=== PATIENT | male | born 1940 | race Caucasian/White ===

== ENCOUNTER 2017-05-29 16:03 | Emergency (ER) | payer MEDICARE, BC ==
--- NOTE | 2017-05-29 16:51 | EDM.PDOC ---
ED HPI GENERAL MEDICAL PROBLEM - General Chief Complaint: General Stated Complaint: fall Time Seen by Provider: 05/29/17 16:24 Source of Information: Reports: Patient, Family History Limitations: Reports: No Limitations - History of Present Illness INITIAL COMMENTS - FREE TEXT/NARRATIVE: Patient was taking off boots when he got dizzy and fell to the side. History of chronic dizziness for years that is triggered when he is standing/ambulating and goes away if he is sitting/laying down. He managed to fall through the entry to the basement stairs and proceeded to roll down the basement stairs, all the way to the bottom. He denies LOC. was nearby when this happened and quickly reached him after the incident. and another family member were able to get him up and return upstairs. He refused to go into the hospital to be seen and sat in a chair for 4 hours. It was noted immediately that he had a developing goose-egg sized bump on his forehead as well as a bump on the back of his head. Patient has had no observable neuro changes per family since then. He did start to complain of some chest pain and then decided to come to the ER to be seen. At the time of arrival he complains of some pain in mid chest, neck discomfort, head contusion, and right shoulder discomfort. He denies numbness/tingling, focal weakness, visual changes, SOB, nausea, other pain. No other complaints. - Related Data Allergies Allergy/AdvReac Type Severity Reaction Status Date / Time No Known Allergies Allergy Verified 05/29/17 16:14 Home Meds: Home Meds Aspirin 2 tab PO BEDTIME 08/29/13 [History] Cyanocobalamin (Vitamin B12) [Vitamin B12] 2,500 mcg SL DAILY 08/29/13 [History] Lisinopril [Prinivil] 20 mg PO DAILY 08/29/13 [History] Tetrahydrozoline [Visine] 2 drop OP TID PRN 08/29/13 [History] Vardenafil HCl [Levitra] 20 mg PO ASDIRECTED PRN 08/29/13 [History] Cholecalciferol (Vitamin D3) [D-2000] 2,000 unit PO DAILY 08/16/15 [History] amLODIPine [Norvasc] 2.5 mg PO DAILY 08/16/15 [History] Ascorbic Acid [Vitamin C] 1,000 mg PO DAILY 05/29/17 [History] Past Medical History HEENT History: Reports: Cataract Cardiovascular History: Reports: High Cholesterol, Hypertension Musculoskeletal History: Reports: Other (See Below) Other Musculoskeletal History: hx, broken colar bone, left leg pt not sure which one. 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 No focal CVA/ischemic disease identified per patient/ Social & Family History - Family History Family Medical History: Noncontributory (for visit) - Tobacco Use Smoking Status *Q: Never Smoker Years of Tobacco use: 15 Used Tobacco, but Quit: Yes Second Hand Smoke Exposure: No - Alcohol Use Days Per Week of Alcohol Use: 0 Number of Drinks Per Day: 0 Total Drinks Per Week: 0 - Recreational Drug Use Recreational Drug Use: No Drug Use in Last 12 Months: No - Living Situation & Occupation Living situation: Reports: Occupation: Employed ED ROS GENERAL - Review of Systems Review Of Systems: See Below Constitutional: Reports: No Symptoms HEENT: Reports: Nose Pain (mild). Denies: Dental Pain, Eye Pain, Vision Change Respiratory: Reports: No Symptoms. Denies: Pleuritic Chest Pain Cardiovascular: Reports: Chest Pain, Lightheadedness (chronic) GI/Abdominal: Reports: No Symptoms : Reports: No Symptoms Musculoskeletal: Reports: Neck Pain, Shoulder Pain (right) Skin: Reports: Wound, Lumps Neurological: Reports: Dizziness (chronic), Headache (mild), Pre-Existing Deficit (slurred speech), Gait Disturbance (chronic balance issues due to dizziness). Denies: Confusion, Numbness, Paresthesia Psychiatric: Reports: No Symptoms Hematologic/Lymphatic: Reports: No Symptoms ED EXAM, GENERAL - Physical Exam Exam: See Below Exam Limited By: No Limitations General Appearance: Alert, WD/WN, No Apparent Distress Eye Exam: Bilateral Eye: EOMI, PERRL Ears: Normal External Exam, Normal Canal Nose: No Blood, Nasal Tenderness (mild), Nasal Swelling. No: Nasal Deformity, Nasal Drainage Throat/Mouth: Normal Voice, No Airway Compromise, Other (Jaw opens/closes well, patient feels teeth intact, no bleeding noted and no swelling around lips/mouth) Head: Facial Swelling (forehead), Facial Tenderness (forehead, bridge nose) Neck: Normal Inspection, Supple, Non-Tender, Full Range of Motion, Other ( unable to elicit tenderness with palpation) Respiratory/Chest: No Respiratory Distress, Lungs Clear, Normal Breath Sounds, No Accessory Muscle Use, Chest Non-Tender (unable to elicit rib/sternal pain with palpation) Cardiovascular: Normal Peripheral Pulses, Regular Rate, Rhythm, No Edema, No Murmur Peripheral Pulses: 2+: Radial (L), Radial (R), Dorsalis Pedis (L), Dorsalis Pedis (R) GI/Abdominal: Normal Bowel Sounds, Soft, Non-Tender (Male) Exam: Deferred Rectal (Males) Exam: Deferred Back Exam: No: CVA Tenderness (L), CVA Tenderness (R), Muscle Spasm, Paraspinal Tenderness, Vertebral Tenderness Extremities: Normal Inspection, Normal Range of Motion (all joints, including right shoulder), Non-Tender (no focal tenderness elicited with palpation of joints/limbs), No Pedal Edema, Normal Capillary Refill Neurological: Alert, Oriented, No Motor/Sensory Deficits (equal tone/strength/ DTRs upper and lower limbs) Psychiatric: Normal Affect, Normal Mood Skin Exam: Warm, Dry, Other (bruising and abrasion on forehead/superior nose, mild abrasion also posterior head. No other acute bruising noted during patient' s stay on trunk/back/limbs) Course - Orders/Labs/Meds Orders: Active Orders 24 hr Category Date Time Status EKG Documentation Completion [RC] ASDIRECTED Care 05/29/17 16:10 Active Cervical Spine wo Cont [CT] Stat Exams 05/29/17 16:39 Taken Chest w Cont [CT] Stat Exams 05/29/17 16:41 Taken Head wo Cont [CT] Stat Exams 05/29/17 16:38 Taken VITAMIN D 25-HYROXY (D2, D3) [REF] Routine Lab 05/29/17 16:56 Received Labs: Laboratory Tests 05/29/17 05/29/17 05/29/17 Range/Units 16:56 16:56 18:37 WBC 12.4 H (4.0-10.2) K/uL RBC 4.78 (4.33-5.41) M/uL Hgb 15.4 (13.1-16.8) g/dL Hct 44.0 (39.0-49.0) % MCV 92.1 (84.0-98.0) fL MCH 32.2 (28.2-33.3) pg MCHC 35.0 (31.7-36.0) g/dL RDW 13.1 (11.2-14.1) % Plt Count 237 (150-350) K/uL Neut % (Auto) 67.6 (45.0-80.0) % Lymph % (Auto) 23.8 (10.0-50.0) % [place] % (Auto) 6.9 (2.0-14.0) % Eos % (Auto) 1.5 (0.0-5.0) % Baso % (Auto) 0.2 (0.0-2.0) % Neut # (Auto) 8.38 H (1.40-7.00) K/uL Lymph # (Auto) 2.95 (0.50-3.50) K/uL [place] # (Auto) 0.85 (0.00-1.00) K/uL Eos # (Auto) 0.19 (0.00-0.50) K/uL Baso # (Auto) 0.02 (0.00-0.20) K/uL Sodium 141 (136-145) mmol/L Potassium 3.9 (3.5-5.1) mmol/L Chloride 105 (98-107) mmol/L Carbon Dioxide 26.2 (21.0-32.0) mmol/L BUN 21 H (7-18) mg/dL Creatinine 0.98 (0.51-1.17) mg/dL Est Cr Clr Drug Dosing TNP Estimated GFR (MDRD) > 60 mL/min Glucose 110 H (74-106) mg/dL Calcium 9.1 (8.5-10.1) mg/dL Magnesium 2.0 (1.8-2.4) mg/dL Total Bilirubin 0.3 (0.2-1.0) mg/dL AST 14 L (15-37) U/L ALT 26 (12-78) U/L Alkaline Phosphatase 105 (46-116) IU/L Creatine Kinase 59 (26-308) U/L Total Protein 7.5 (6.4-8.2) g/dL Albumin 3.8 (3.4-5.0) g/dL Specimen Type Urincc Urine Color Yellow Urine Appearance Clear Urine pH 7.5 (5.0-9.0) Ur Specific [place] 1.015 (1.005-1.030) Urine Protein Negative (NEGATIVE) mg/dL Urine Glucose (UA) Negative (NEGATIVE) mg/dL Urine Ketones Negative (NEGATIVE) mg/dL Urine Occult Blood Negative (NEGATIVE) Urine Nitrite Negative (NEGATIVE) Urine Bilirubin Negative (NEGATIVE) Urine Urobilinogen 0.2 (0.2-1.0) E.U./dL Ur Leukocyte Esterase Negative (NEGATIVE) Urine RBC 0-5 /HPF Urine WBC 0-5 /HPF Ur Epithelial Cells Occasional /LPF Urine Bacteria Occasional (NONE TO FEW) /HPF Meds: Medications Discontinued Medications Generic Name Dose Route Start Last Admin Trade Name Freq PRN Reason Stop Dose Admin Iopamidol 100 ml 05/29/17 17:14 05/29/17 18:15 Isovue-300 (61%) IVPUSH 05/29/17 17:15 100 ml ONETIME ONE Administration - Radiology Interpretation CT Results Date: 05/29/17 CT Results Time: 05:53 (Possible T3 superior endplate compression fracture, no acute bleed/changes in brain noted. ) - Re-Assessments/Exams Free Text/Narrative Re-Assessment/Exam: 05/29/17 20:44 CT of head/neck performed as well as chest. Only identified acute changes noted were suggested new compression fractures at T3 and T12. Patient got up and moved around multiple times during stay and was able to ambulate safely. Vital signs stable. Declined pain medication. Labs unremarkable overall except for slight elevation of WBC which very well could reflect acute demargination s/p fall and acute injury. Discussed findings with patient and family. He wished to go home. Was offered observation. At that point we discussed/offered that if he has too much discomfort at home secondary to the compression fractures and contusions that it would be possible for him to return here and be placed on swing bed. That way he could have help with ADLs and be seen by PT/OT. Patient and said they would consider that if it was needed. Patient discharged home. Departure - Departure Time of Disposition: 18:44 Disposition: Home, Self-Care 01 Condition: Good Clinical Impression: Multiple contusions, Compression fracture of T12 vertebra Fall down stairs Qualifiers: Encounter type: initial encounter Qualified Code(s): W10.8XXA - Fall (on) (from ) other stairs and steps, initial encounter Head contusion Qualifiers: Encounter type: initial encounter Contusion of head detail: unspecified part of head Qualified Code(s): S00.93XA - Contusion of unspecified part of head, initial encounter Traumatic compression fracture of T3 thoracic vertebra Qualifiers: Encounter type: initial encounter Fracture type: closed Qualified Code(s): S22.030A - Wedge compression fracture of third thoracic vertebra, initial encounter for closed fracture - Discharge Information Instructions: Contusion, [id number], Head Injury, Adult, [id number], Vertebral Fracture, [id number] Referrals: Cornelius Faustin MD [Primary Care Provider] - Forms: ED Department Discharge Additional Instructions: See how well you do over the next 24-48 hours. Given your bumps and bruises it will likely become more painful and stiff over that time. If you have too much difficulty at home with basic activities, consider coming back to the hospital for swing bed stay as we discussed. That way you can get the extra help as well as physical therapy while you heal from your fall. Follow up also if you have sudden worsening changes otherwise. - My Orders Last 24 Hours: My Active Orders 05/29/17 16:10 EKG Documentation Completion [RC] ASDIRECTED 05/29/17 16:38 Head wo Cont [CT] Stat 05/29/17 16:39 Cervical Spine wo Cont [CT] Stat 05/29/17 16:41 Chest w Cont [CT] Stat 05/29/17 16:56 VITAMIN D 25-HYROXY (D2, D3) [REF] Routine - Assessment/Plan Last 24 Hours: My Active Orders 05/29/17 16:10 EKG Documentation Completion [RC] ASDIRECTED 05/29/17 16:38 Head wo Cont [CT] Stat 05/29/17 16:39 Cervical Spine wo Cont [CT] Stat 05/29/17 16:41 Chest w Cont [CT] Stat 05/29/17 16:56 VITAMIN D 25-HYROXY (D2, D3) [REF] Routine
[2017-05-29] MEDS ORDERED: Iopamidol 612 MG/ML 100 ML Bottle IVPUSH ONE (17:14)
[2017-05-29 17:23] LABS: CHLORIDE,CL 105 mmol/L (98-107); SODIUM,NA 141 mmol/L (136-145)
== END 2017-05-29 19:10 | disposition home or self-care (01) ==
LOC: LL.ED 16:03
DX: S22.039A Unspecified fracture of third thoracic vertebra, initial encounter for closed fracture (principal); S22.089A Unspecified fracture of T11-T12 vertebra, initial encounter for closed fracture; S00.83XA Contusion of other part of head, initial encounter; I10 Essential (primary) hypertension; E78.00 Pure hypercholesterolemia, unspecified; Z79.899 Other long term (current) drug therapy; Z79.82 Long term (current) use of aspirin; Z87.891 Personal history of nicotine dependence; W19.XXXA Unspecified fall, initial encounter
CPT/HCPCS: 36000; 36415; 51798; 70450; 71260; 72125; 80053; 81001; 82306; 82550; 83735; 85025; 93005; 99291; 99292; Q9967; 99284

== ENCOUNTER 2017-09-23 17:39 | Emergency (ER) | payer MEDICARE, BC ==
[2017-09-23 19:00] VITALS: BP 157/89
[2017-09-23] MEDS ORDERED: Iopamidol 755 Mg/ML 100 ML Bottle IVPUSH ONE (19:20)
[2017-09-23 19:21] LABS: CHLORIDE,CL 105 mmol/L (98-107); SODIUM,NA 140 mmol/L (136-145)
--- NOTE | 2017-09-23 19:40 | EDM.PDOC ---
ED HPI GENERAL MEDICAL PROBLEM - General Chief Complaint: General Stated Complaint: Dizziness, Shortness of Breath Time Seen by Provider: 09/23/17 18:10 Source of Information: Reports: Patient, Family History Limitations: Reports: No Limitations - History of Present Illness INITIAL COMMENTS - FREE TEXT/NARRATIVE: Increased sensation of SOB since tipping a lawnmower over several weeks ago. Has had some right sided chest discomfort since then. Says lawnmower made contact with right chest at that time. History of chronic dizziness/ lightheadedness that usually improves at rest. This has also worsened in general over the past few weeks. Worse with movement. Incontinence has also worsened. 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 Has had very extensive workups for this in [facility] but no specific findings on MRI per family. No other specific changes during ROS. - Related Data Allergies Allergy/AdvReac Type Severity Reaction Status Date / Time No Known Allergies Allergy Verified 09/23/17 18:54 Home Meds: Home Meds Aspirin 2 tab PO BEDTIME 08/29/13 [History] Cyanocobalamin (Vitamin B12) [Vitamin B12] 2,500 mcg SL DAILY 08/29/13 [History] Lisinopril [Prinivil] 20 mg PO DAILY 08/29/13 [History] Tetrahydrozoline [Visine] 2 drop OP TID PRN 08/29/13 [History] Vardenafil HCl [Levitra] 20 mg PO ASDIRECTED PRN 08/29/13 [History] Cholecalciferol (Vitamin D3) [D-2000] 2,000 unit PO DAILY 08/16/15 [History] amLODIPine [Norvasc] 2.5 mg PO DAILY 08/16/15 [History] Ascorbic Acid [Vitamin C] 1,000 mg PO DAILY 05/29/17 [History] Past Medical History HEENT History: Reports: Cataract Cardiovascular History: Reports: High Cholesterol, Hypertension Musculoskeletal History: Reports: Other (See Below) Other Musculoskeletal History: hx, broken colar bone, left leg pt not sure which one. Spinal burst fracture Neurological History: Reports: Other (See Below) Other Neuro History: deteriating cerebelum, chronically slurred speech since dizziness started several years ago Oncologic (Cancer) History: Reports: Prostate - Past Surgical History Male Surgical History: Reports: Prostatectomy Musculoskeletal Surgical History: Reports: ORIF - History Comment History Comment: Extensive workup and imaging to look for causes of chronic dizziness/slurred speech. No focal CVA/ischemic disease identified per patient/ Social & Family History - Family History Family Medical History: Noncontributory - Tobacco Use Smoking Status *Q: Never Smoker - Alcohol Use Alcohol Use History: No - Recreational Drug Use Recreational Drug Use: No Drug Use in Last 12 Months: No - Living Situation & Occupation Living situation: Reports: Occupation: Employed ED ROS GENERAL - Review of Systems Review Of Systems: See Below Constitutional: Reports: No Symptoms HEENT: Reports: No Symptoms. Denies: Vertigo (denies spinning sensation/vertigo -like complaints), Vision Change Respiratory: Reports: Shortness of Breath (with exertion). Denies: Wheezing, Pleuritic Chest Pain, Cough, Sputum, Hemoptysis Cardiovascular: Reports: Dyspnea on Exertion, Lightheadedness (chronic, worse than usual). Denies: Edema, Orthopnea, Palpitations, PND, Syncope GI/Abdominal: Reports: No Symptoms. Denies: Abdominal Pain, Constipation, Diarrhea, Hematemesis, Hematochezia, Nausea, Vomiting : Reports: Incontinence Musculoskeletal: Reports: Other (right chest wall discomfort at times. No other acute new/changed pain otherwise) Skin: Denies: Bruising, Erythema, Wound Neurological: Reports: Dizziness, Pre-Existing Deficit (slurred speech, dizziness), Difficulty Walking (at times due to dizziness. No acute gait changes ). Denies: Headache, Numbness, Paresthesia, Syncope, Tingling, Change in Speech Psychiatric: Reports: No Symptoms Hematologic/Lymphatic: Reports: No Symptoms ED EXAM, GENERAL - Physical Exam Exam: See Below Exam Limited By: No Limitations General Appearance: Alert, WD/WN, No Apparent Distress Eye Exam: Bilateral Eye: EOMI, PERRL Ears: Normal External Exam, Normal Canal, Hearing Grossly Normal, Normal TMs, Other (large amount cerumen bilaterally) Nose: Normal Inspection Throat/Mouth: Normal Inspection, Normal Lips, Normal Voice, No Airway Compromise Head: Atraumatic, Normocephalic Neck: Normal Inspection, Supple, Non-Tender. No: Lymphadenopathy (L), Lymphadenopathy (R), Tender Lateral, Tender Midline Respiratory/Chest: No Respiratory Distress, Lungs Clear, Normal Breath Sounds, No Accessory Muscle Use, Chest Non-Tender Cardiovascular: Normal Peripheral Pulses, Regular Rate, Rhythm, No Murmur Peripheral Pulses: 2+: Radial (L), Radial (R) GI/Abdominal: Normal Bowel Sounds, Soft, Non-Tender, No Distention (Male) Exam: Deferred Rectal (Males) Exam: Deferred Back Exam: No: CVA Tenderness (L), CVA Tenderness (R) Extremities: Normal Range of Motion, Non-Tender, Normal Capillary Refill Neurological: Alert, Oriented, Normal Cognition, No Motor/Sensory Deficits, Other (Patient got up and walked hallways with nurse in attendance. Overall did very well. No obvious SOB. Sats on room air 94% at end of ambulation. ) Psychiatric: Normal Affect, Normal Mood Skin Exam: Warm, Dry, Intact, Normal Color Course - Vital Signs Last Recorded V/S: Last Vital Signs Temp 37.1 C 09/23/17 18:55 Pulse 92 09/23/17 18:55 Resp 20 09/23/17 18:55 BP 157/89 H 09/23/17 18:55 Pulse Ox 100 09/23/17 18:55 - Orders/Labs/Meds Labs: Laboratory Tests 09/23/17 09/23/17 09/23/17 Range/Units 18:25 18:25 18:25 WBC 9.2 (4.0-10.2) K/uL RBC 4.95 (4.33-5.41) M/uL Hgb 15.8 (13.1-16.8) g/dL Hct 45.3 (39.0-49.0) % MCV 91.5 (84.0-98.0) fL MCH 31.9 (28.2-33.3) pg MCHC 34.9 (31.7-36.0) g/dL RDW 12.9 (11.2-14.1) % Plt Count 240 (150-350) K/uL Neut % (Auto) 53.8 (45.0-80.0) % Lymph % (Auto) 35.5 (10.0-50.0) % [place] % (Auto) 7.9 (2.0-14.0) % Eos % (Auto) 2.5 (0.0-5.0) % Baso % (Auto) 0.3 (0.0-2.0) % Neut # (Auto) 4.94 (1.40-7.00) K/uL Lymph # (Auto) 3.27 (0.50-3.50) K/uL [place] # (Auto) 0.73 (0.00-1.00) K/uL Eos # (Auto) 0.23 (0.00-0.50) K/uL Baso # (Auto) 0.03 (0.00-0.20) K/uL D-Dimer, Quantitative 1160 H (0-400) ng/mL Sodium 140 (136-145) mmol/L Potassium 3.8 (3.5-5.1) mmol/L Chloride 105 (98-107) mmol/L Carbon Dioxide 22.7 (21.0-32.0) mmol/L BUN 15 (7-18) mg/dL Creatinine 0.87 (0.51-1.17) mg/dL Est Cr Clr Drug Dosing TNP Estimated GFR (MDRD) > 60 mL/min Glucose 106 (74-106) mg/dL Calcium 9.1 (8.5-10.1) mg/dL Magnesium 2.1 (1.8-2.4) mg/dL Total Bilirubin 0.3 (0.2-1.0) mg/dL AST 16 (15-37) U/L ALT 23 (12-78) U/L Alkaline Phosphatase 147 H (46-116) IU/L NT-Pro-B Natriuret Pep 102 (0-125) pg/mL Total Protein 7.9 (6.4-8.2) g/dL Albumin 3.9 (3.4-5.0) g/dL Vitamin B12 1082 H (193-986) pg/mL Vitamin D 25-Hydroxy 33.0 (30-100) ng/mL Folate (8.6-58.9) ng/mL 09/23/17 Range/Units 18:25 WBC (4.0-10.2) K/uL RBC (4.33-5.41) M/uL Hgb (13.1-16.8) g/dL Hct (39.0-49.0) % MCV (84.0-98.0) fL MCH (28.2-33.3) pg MCHC (31.7-36.0) g/dL RDW (11.2-14.1) % Plt Count (150-350) K/uL Neut % (Auto) (45.0-80.0) % Lymph % (Auto) (10.0-50.0) % [place] % (Auto) (2.0-14.0) % Eos % (Auto) (0.0-5.0) % Baso % (Auto) (0.0-2.0) % Neut # (Auto) (1.40-7.00) K/uL Lymph # (Auto) (0.50-3.50) K/uL [place] # (Auto) (0.00-1.00) K/uL Eos # (Auto) (0.00-0.50) K/uL Baso # (Auto) (0.00-0.20) K/uL D-Dimer, Quantitative (0-400) ng/mL Sodium (136-145) mmol/L Potassium (3.5-5.1) mmol/L Chloride (98-107) mmol/L Carbon Dioxide (21.0-32.0) mmol/L BUN (7-18) mg/dL Creatinine (0.51-1.17) mg/dL Est Cr Clr Drug Dosing Estimated GFR (MDRD) mL/min Glucose (74-106) mg/dL Calcium (8.5-10.1) mg/dL Magnesium (1.8-2.4) mg/dL Total Bilirubin (0.2-1.0) mg/dL AST (15-37) U/L ALT (12-78) U/L Alkaline Phosphatase (46-116) IU/L NT-Pro-B Natriuret Pep (0-125) pg/mL Total Protein (6.4-8.2) g/dL Albumin (3.4-5.0) g/dL Vitamin B12 (193-986) pg/mL Vitamin D 25-Hydroxy (30-100) ng/mL Folate 17.9 (8.6-58.9) ng/mL Meds: Medications Discontinued Medications Generic Name Dose Route Start Last Admin Trade Name Freq PRN Reason Stop Dose Admin Iopamidol 100 ml 09/23/17 19:20 09/23/17 19:42 Isovue-370 (76%) IVPUSH 09/23/17 19:21 100 ml ONETIME ONE Administration - Re-Assessments/Exams Free Text/Narrative Re-Assessment/Exam: 09/23/17 20:00 CBC/Chem/DDimer/BNP/VitD/Folate/B12 ordered. Chest film/rib studies did not show obvious acute abnormalities however Radiology thought that there was slight anomaly noted rib 8 on right that could reflect a fracture. DDimer elevated at over 1100. PE scan ordered. Vital signs stable. Did not dip below 94% on room air after walking the hallways. O2 sats 99-100% on room air when resting. Normal respiratory effort. Patient stable on feet when ambulating. Patient and family wanted to go home and not wait for official reading of chest CT. Precautions reviewed. They did agree to return of PE noted on scan. They agreed to otherwise follow up with patient's primary provider for ongoing care. Departure - Departure Time of Disposition: 21:00 Disposition: Home, Self-Care 01 Condition: Good Clinical Impression: Dizziness, Cerebellar disease, SOB (shortness of breath) on exertion - Discharge Information Referrals: Humberto Barnes MD [Primary Care Provider] - Forms: ED Department Discharge Additional Instructions: Continue current medications. Follow up with your doctors as needed for continuing care. Watch for any additional changes and get rechecked if things worsen.
== END 2017-09-23 21:15 | disposition home or self-care (01) ==
LOC: LL.ED 17:39
DX: S22.31XA Fracture of one rib, right side, initial encounter for closed fracture (principal); G93.9 Disorder of brain, unspecified; I10 Essential (primary) hypertension; E78.00 Pure hypercholesterolemia, unspecified; Z79.82 Long term (current) use of aspirin; Z79.899 Other long term (current) drug therapy; W01.198A Fall on same level from slipping, tripping and stumbling with subsequent striking against other object, initial encounter
CPT/HCPCS: 36415; 71046; 71100-RT; 71275; 80053; 82306; 82607; 82746; 83735; 83880; 85025; 85379; 99285; Q9967

== ENCOUNTER 2018-10-07 17:17 | Emergency (ER) | payer MEDICARE, BC ==
[2018-10-07 18:00] LABS: CHLORIDE,CL 105 mmol/L (98-107); SODIUM,NA 141 mmol/L (136-145)
--- NOTE | 2018-10-07 18:18 | EDM.PDOC ---
ED HPI GENERAL MEDICAL PROBLEM - General Chief Complaint: Neuro Symptoms/Deficits Stated Complaint: fall, with memory loss Time Seen by Provider: 10/07/18 17:23 Source of Information: Reports: Patient, Family History Limitations: Reports: Altered Mental Status - History of Present Illness INITIAL COMMENTS - FREE TEXT/NARRATIVE: Patient found on ground outside of home. Appears during fall he may have hit head on concrete per family. Unknown if he had any LOC. Patient does not remember what happened to him at the time of the fall. He has been repeatedly asking family members what happened and why he is at the hospital since he arrived. Has obvious abrasion on the back of the head. No other complaints when asked. Family says patient usually denies any discomfort/pain when asked in the past, even when he has been injured. Family has not noted any other injuries. - Related Data Allergies Allergy/AdvReac Type Severity Reaction Status Date / Time No Known Allergies Allergy Verified 09/23/17 18:54 Home Meds: Home Meds Aspirin 2 tab PO BEDTIME 08/29/13 [History] Cyanocobalamin (Vitamin B12) [Vitamin B12] 2,500 mcg SL DAILY 08/29/13 [History] Lisinopril [Prinivil] 20 mg PO DAILY 08/29/13 [History] Tetrahydrozoline [Visine] 2 drop OP TID PRN 08/29/13 [History] Vardenafil HCl [Levitra] 20 mg PO ASDIRECTED PRN 08/29/13 [History] Cholecalciferol (Vitamin D3) [D-2000] 2,000 unit PO DAILY 08/16/15 [History] amLODIPine [Norvasc] 2.5 mg PO DAILY 08/16/15 [History] Ascorbic Acid [Vitamin C] 1,000 mg PO DAILY 05/29/17 [History] Past Medical History HEENT History: Reports: Cataract Cardiovascular History: Reports: High Cholesterol, Hypertension Musculoskeletal History: Reports: Other (See Below) Other Musculoskeletal History: hx, broken colar bone, left leg pt not sure which one. Spinal burst fracture Neurological History: Reports: Concussion, Other (See Below) Other Neuro History: deteriorating cerebelum, chronically slurred speech since dizziness started several years ago. Chronic right sided weakness. Oncologic (Cancer) History: Reports: Prostate - Past Surgical History Male Surgical History: Reports: Prostatectomy Musculoskeletal Surgical History: Reports: ORIF - History Comment History Comment: Extensive workup and imaging to look for causes of chronic dizziness/slurred speech. No focal CVA/ischemic disease identified per patient/ Social & Family History - Family History Family Medical History: Noncontributory - Tobacco Use Smoking Status *Q: Never Smoker Second Hand Smoke Exposure: No - Caffeine Use Caffeine Use: Reports: Coffee - Recreational Drug Use Recreational Drug Use: No - Living Situation & Occupation Living situation: Reports: Occupation: Employed ED ROS GENERAL - Review of Systems Review Of Systems: ROS reveals no pertinent complaints other than HPI. Constitutional: Reports: No Symptoms HEENT: Reports: Glasses Respiratory: Reports: No Symptoms Cardiovascular: Reports: No Symptoms. Denies: Chest Pain, Edema, Palpitations, Syncope GI/Abdominal: Reports: No Symptoms. Denies: Abdominal Pain Musculoskeletal: Denies: Neck Pain, Shoulder Pain, Arm Pain, Back Pain, Hand Pain, Leg Pain, Foot Pain, Joint Pain, Joint Swelling Skin: Reports: Wound (abrasion posterior scalp) Neurological: Reports: Other (short term amnesia surrounding fall. Cannot recall how he was hurt) Psychiatric: Reports: No Symptoms Hematologic/Lymphatic: Reports: No Symptoms ED EXAM, HEAD INJURY - Physical Exam Exam: See Below Exam Limited By: No Limitations General Appearance: Alert, WD/WN, No Apparent Distress Head: Scalp Abrasions (posteriorly), Scalp Ecchymosis (posteriorly), Scalp Tenderness (posteriorly). No: Scalp Swelling, Scalp Hematoma, Active Bleeding, Cardozo's Sign, Facial Abrasions, Facial Ecchymosis, Facial Lacerations, Facial Swelling, Sinus Tenderness, Facial Tenderness, Raccoon Eyes Eyes: Bilateral Eye: EOMI, PERRL Ears: Normal External Exam Nose: No: Nasal Deformity, Nasal Discharge, Nasal Swelling, Nasal Tenderness Throat/Mouth: Normal Lips, Normal Voice, No Airway Compromise, Other (Patient able to open and close jaw well. ) Neck: Non-Tender, Full Range of Motion Respiratory: No Respiratory Distress, Lungs Clear, Normal Breath Sounds, No Accessory Muscle Use, Chest Non-Tender Cardiovascular: Regular Rate, Rhythm, No Edema, No Murmur GI/Abdominal Exam: Normal Bowel Sounds, Soft, Non-Tender, No Distention, Pelvis Stable (Male) Exam: Deferred Rectal (Males) Exam: Deferred Back Exam: Normal Inspection. No: CVA Tenderness (L), CVA Tenderness (R), Muscle Spasm, Paraspinal Tenderness, Vertebral Tenderness Extremities: Normal Range of Motion (for patient), Non-Tender, No Pedal Edema, Normal Capillary Refill Neurologic: Alert, Motor Weakness (right sided, not new per family) Course - Vital Signs Last Recorded V/S: Last Vital Signs Temp 36.7 C 10/07/18 17:30 Pulse 82 10/07/18 18:44 Resp 20 10/07/18 17:30 BP 153/67 H 10/07/18 18:44 Pulse Ox 98 10/07/18 17:30 - Orders/Labs/Meds Orders: Active Orders 24 hr Category Date Time Status Cervical Spine wo Cont [CT] Stat Exams 10/07/18 17:24 Taken Head wo Cont [CT] Stat Exams 10/07/18 17:24 Taken UA W/MICROSCOPIC [URIN] Stat Lab 10/07/18 17:28 Ordered Labs: Laboratory Tests 10/07/18 10/07/18 Range/Units 17:40 17:40 WBC 9.6 (4.0-10.2) K/uL RBC 4.85 (4.33-5.41) M/uL Hgb 15.8 (13.1-16.8) g/dL Hct 44.9 (39.0-49.0) % MCV 92.6 (84.0-98.0) fL MCH 32.6 (28.2-33.3) pg MCHC 35.2 (31.7-36.0) g/dL RDW 12.8 (11.2-14.1) % Plt Count 243 (150-350) K/uL Neut % (Auto) 67.7 (45.0-80.0) % Lymph % (Auto) 24.1 (10.0-50.0) % [place] % (Auto) 6.6 (2.0-14.0) % Eos % (Auto) 1.4 (0.0-5.0) % Baso % (Auto) 0.2 (0.0-2.0) % Neut # (Auto) 6.51 (1.40-7.00) K/uL Lymph # (Auto) 2.31 (0.50-3.50) K/uL [place] # (Auto) 0.63 (0.00-1.00) K/uL Eos # (Auto) 0.13 (0.00-0.50) K/uL Baso # (Auto) 0.02 (0.00-0.20) K/uL Sodium 141 (136-145) mmol/L Potassium 3.7 (3.5-5.1) mmol/L Chloride 105 (98-107) mmol/L Carbon Dioxide 24.6 (21.0-32.0) mmol/L BUN 17 (7-18) mg/dL Creatinine 0.83 (0.51-1.17) mg/dL Est Cr Clr Drug Dosing 65.12 mL/min Estimated GFR (MDRD) > 60 mL/min Glucose 123 H (74-106) mg/dL Calcium 8.9 (8.5-10.1) mg/dL Magnesium 1.8 (1.8-2.4) mg/dL Total Bilirubin 0.4 (0.2-1.0) mg/dL AST 14 L (15-37) U/L ALT 26 (12-78) U/L Alkaline Phosphatase 101 (46-116) IU/L Total Protein 7.2 (6.4-8.2) g/dL Albumin 3.8 (3.4-5.0) g/dL Meds: Medications Discontinued Medications Generic Name Dose Route Start Last Admin Trade Name Freq PRN Reason Stop Dose Admin Metoprolol Tartrate 25 mg 10/07/18 18:33 10/07/18 18:44 Lopressor PO 10/07/18 18:34 25 mg ONETIME ONE Administration Neomycin/Polymyxin/Bacitracin 1 each 10/07/18 18:49 10/07/18 19:02 Triple Antibiotic Oint TOP 10/07/18 18:50 1 each ONETIME ONE Administration - Radiology Interpretation Free Text/Narrative:: CT of head and neck ordered given history. No additional films ordered at this time as patient has no other pain complaints. CT Results Date: 10/07/18 CT Results Time: 18:40 (No obvious acute intracranial changes or fracture noted on head/neck CT. ) - Re-Assessments/Exams Free Text/Narrative Re-Assessment/Exam: 10/07/18 18:35 Baseline CBC/Chem ordered. Single Metoprolol given due to elevated BP. 07/06/19 19:12 Patient observed. BP improved. OK to be discharged homes. Precautions reviewed. To follow up as needed if any worrisome changes are noted. Departure - Departure Time of Disposition: 19:13 Disposition: Home, Self-Care 01 Condition: Good Clinical Impression: Head contusion Qualifiers: Encounter type: initial encounter Contusion of head detail: scalp Qualified Code(s): S00.03XA - Contusion of scalp, initial encounter Fall Qualifiers: Encounter type: initial encounter Qualified Code(s): W19.XXXA - Unspecified fall, initial encounter Concussion Qualifiers: Encounter type: initial encounter Loss of consciousness presence/duration: without LOC Qualified Code(s): S06.0X0A - Concussion without loss of consciousness, initial encounter - Discharge Information *PRESCRIPTION DRUG MONITORING PROGRAM REVIEWED*: Not Applicable *COPY OF PRESCRIPTION DRUG MONITORING REPORT IN PATIENT FRANCIS: Not Applicable Instructions: Head Injury, Adult Referrals: Cornelius Faustin MD [Primary Care Provider] - Forms: ED Department Discharge Additional Instructions: Observe for changes as discussed. Follow up as needed if any concerns/acute problems develop. - My Orders Last 24 Hours: My Active Orders 10/07/18 17:24 Cervical Spine wo Cont [CT] Stat Head wo Cont [CT] Stat 10/07/18 17:28 UA W/MICROSCOPIC [URIN] Stat - Assessment/Plan Last 24 Hours: My Active Orders 10/07/18 17:24 Cervical Spine wo Cont [CT] Stat Head wo Cont [CT] Stat 10/07/18 17:28 UA W/MICROSCOPIC [URIN] Stat
[2018-10-07] MEDS ORDERED: Metoprolol Tartrate 25 MG Tab PO ONE (18:33)
[2018-10-07] MEDS ORDERED: Bacitracin/Neomycin/Polymyxin B Oint 0.9 GM U/D Packet TOP ONE (18:49)
[2018-10-07 19:34] VITALS: BP 163/80; PULSE 78
== END 2018-10-07 19:30 | disposition home or self-care (01) ==
LOC: SUPCPDRO 17:17 → LL.ED 17:17
DX: S06.0X9A Concussion with loss of consciousness of unspecified duration, initial encounter (principal); E78.00 Pure hypercholesterolemia, unspecified; I10 Essential (primary) hypertension; Z79.82 Long term (current) use of aspirin; W18.39XA Other fall on same level, initial encounter
CPT/HCPCS: 36415; 70450; 72125; 80053; 83735; 85025; 99284; A9270

== ENCOUNTER 2019-02-23 21:38 | Emergency (ER) | payer MEDICARE, BC ==
[2019-02-23 22:15] LABS: CHLORIDE,CL 107 mmol/L (98-107); SODIUM,NA 144 mmol/L (136-145)
--- NOTE | 2019-02-23 22:36 | EDM.PDOC ---
ED HPI GENERAL MEDICAL PROBLEM - General Chief Complaint: Head Injury Stated Complaint: Fell backward in chair/hit head Time Seen by Provider: 02/23/19 21:55 Source of Information: Reports: Family History Limitations: Reports: Other (neurodegenerative disorder affecting movement and speech) - History of Present Illness INITIAL COMMENTS - FREE TEXT/NARRATIVE: Patient fell backwards in dining chair while at home. Hit back of head on floor. No LOC/seizure activity per family present. They did not patient had amnesia in regards to the event and the time after the event lasting for an hour or so. He is not complaining of any acute pain/injuries. He has history of neurodegenerative disorder, largely affecting cerebellum. Also has speech issues and questionable as to how much it affects him cognitively. Family notes that they really have not had a specific cognitive deficit diagnosed in the past, but they admit that the patient is getting worse at following directions and waiting for help with ADLs which gets him into trouble. Tonight he was told to wait for assistance but refused, and that led to the incident. Small xena in skin near bridge nose presumably from glasses. Patient usually ambulates using walker around home. Can use cane too as long as he has family members alongside him for support. Has some old bruising/abrasions from several other recent falls at home per family. - Related Data Allergies Allergy/AdvReac Type Severity Reaction Status Date / Time No Known Allergies Allergy Verified 09/23/17 18:54 Home Meds: Home Meds Aspirin 2 tab PO BEDTIME 08/29/13 [History] Cyanocobalamin (Vitamin B12) [Vitamin B12] 2,500 mcg SL DAILY 08/29/13 [History] Lisinopril [Prinivil] 20 mg PO DAILY 08/29/13 [History] Tetrahydrozoline [Visine] 2 drop OP TID PRN 08/29/13 [History] Vardenafil HCl [Levitra] 20 mg PO ASDIRECTED PRN 08/29/13 [History] Cholecalciferol (Vitamin D3) [D-2000] 2,000 unit PO DAILY 08/16/15 [History] amLODIPine [Norvasc] 2.5 mg PO DAILY 08/16/15 [History] Ascorbic Acid [Vitamin C] 1,000 mg PO DAILY 05/29/17 [History] Past Medical History HEENT History: Reports: Cataract Cardiovascular History: Reports: High Cholesterol, Hypertension Musculoskeletal History: Reports: Other (See Below) Other Musculoskeletal History: hx, broken colar bone, left leg pt not sure which one. Spinal burst fracture Neurological History: Reports: Concussion, Other (See Below) Other Neuro History: deteriorating cerebelum, chronically slurred speech since dizziness started several years ago. Chronic right sided weakness. Questionable degree of cognitive decline recently. Oncologic (Cancer) History: Reports: Prostate - Past Surgical History Male Surgical History: Reports: Prostatectomy Musculoskeletal Surgical History: Reports: ORIF - History Comment History Comment: Extensive workup and imaging to look for causes of chronic dizziness/slurred speech. No focal CVA/ischemic disease identified per patient/ Social & Family History - Family History Family Medical History: Noncontributory - Caffeine Use Caffeine Use: Reports: Coffee - Living Situation & Occupation Living situation: Reports: Occupation: Employed ED ROS GENERAL - Review of Systems Review Of Systems: See Below Constitutional: Reports: No Symptoms HEENT: Reports: Other (bump back of head). Denies: Dental Pain, Ear Pain, Eye Pain, Nosebleed Respiratory: Denies: Shortness of Breath, Pleuritic Chest Pain, Cough Cardiovascular: Denies: Chest Pain, Edema, Lightheadedness, Syncope GI/Abdominal: Denies: Abdominal Pain, Black Stool, Bloody Stool, Constipation, Diarrhea, Decreased Appetite, Nausea, Vomiting : Denies: Dysuria, Flank Pain, Pain Musculoskeletal: Reports: Other (No acute changes from baseline) Skin: Reports: Bruising (old bruising left lateral ribs/abdomen, scattered small older bruises trunk/limbs. Healing abrasion left lateral lower ribs. Small new laceration left glabellar area. Small red lana back of head.) Neurological: Reports: Confusion (See HPI), Pre-Existing Deficit, Trouble Speaking, Difficulty Walking (chronic), Weakness (chronic), Gait Disturbance. Denies: Headache, Numbness, Change in Speech (no acute changes in speech pattern ) Psychiatric: Denies: Hallucinations ED EXAM, GENERAL - Physical Exam Exam: See Below Exam Limited By: No Limitations General Appearance: Alert, No Apparent Distress Eye Exam: Bilateral Eye: EOMI, PERRL Ear Exam: Left Ear: Auricle Normal (right side is a bit more red than left), Bilateral Ear: Canal Normal Nose: No: Nasal Deformity, Nasal Swelling, Nasal Drainage Throat/Mouth: Normal Lips, Normal Voice, No Airway Compromise Head: Normocephalic, Other (tiny laceration left glabellar area. Small area redness on back of head. ). No: Facial Swelling, Facial Tenderness, Sinus Tenderness Neck: Supple, Non-Tender, Other (able to turn head left/right). No: Lymphadenopathy (L), Lymphadenopathy (R), Tender Lateral, Tender Midline Respiratory/Chest: No Respiratory Distress, Lungs Clear, Normal Breath Sounds, No Accessory Muscle Use, Chest Non-Tender Cardiovascular: Regular Rate, Rhythm, No Edema, No Murmur Peripheral Pulses: 2+: Radial (L), Radial (R) GI/Abdominal: Soft, Non-Tender, No Distention (Male) Exam: Deferred Rectal (Males) Exam: Deferred Back Exam: Other. No: CVA Tenderness (L), CVA Tenderness (R), Muscle Spasm, Paraspinal Tenderness, Vertebral Tenderness Extremities: Normal Inspection, Normal Range of Motion, Non-Tender, No Pedal Edema, Normal Capillary Refill Neurological: Alert, Oriented (knows he is at [facility], does not recall fall), Memory Loss Recent Events, Other (History of right sided weakness. Noted equally good personalized living manager nurse strength/leg strength during testing. ) Psychiatric: Normal Affect, Normal Mood Skin Exam: Warm, Dry, Ecchymosis (scattered old bruises, larger one noted left lateral ribs/upper abdomen with healing linear abrasion in center. ), Wound/ Incision (very small xena in skin left glabellar area. ) Course - Orders/Labs/Meds Orders: Active Orders 24 hr Category Date Time Status Cervical Spine wo Cont [CT] Routine Exams 02/23/19 21:54 Ordered Head wo Cont [CT] Routine Exams 02/23/19 21:55 Ordered UA W/MICROSCOPIC [URIN] Stat Lab 02/23/19 21:56 Ordered Labs: Laboratory Tests 02/23/19 02/23/19 02/23/19 Range/Units 21:55 21:55 21:55 WBC 11.5 H (4.0-10.2) K/uL RBC 4.56 (4.33-5.41) M/uL Hgb 14.8 D (13.1-16.8) g/dL Hct 42.6 (39.0-49.0) % MCV 93.4 (84.0-98.0) fL MCH 32.5 (28.2-33.3) pg MCHC 34.7 (31.7-36.0) g/dL RDW 12.8 (11.2-14.1) % Plt Count 241 (150-350) K/uL Neut % (Auto) 76.2 (45.0-80.0) % Lymph % (Auto) 16.7 (10.0-50.0) % [place] % (Auto) 5.8 (2.0-14.0) % Eos % (Auto) 1.0 (0.0-5.0) % Baso % (Auto) 0.3 (0.0-2.0) % Neut # (Auto) 8.75 H (1.40-7.00) K/uL Lymph # (Auto) 1.91 (0.50-3.50) K/uL [place] # (Auto) 0.66 (0.00-1.00) K/uL Eos # (Auto) 0.11 (0.00-0.50) K/uL Baso # (Auto) 0.03 (0.00-0.20) K/uL Sodium 144 (136-145) mmol/L Potassium 3.9 (3.5-5.1) mmol/L Chloride 107 (98-107) mmol/L Carbon Dioxide 26.3 (21.0-32.0) mmol/L BUN 26 H (7-18) mg/dL Creatinine 0.93 (0.51-1.17) mg/dL Est Cr Clr Drug Dosing TNP Estimated GFR (MDRD) > 60 mL/min Glucose 124 H (74-106) mg/dL Calcium 9.2 (8.5-10.1) mg/dL Magnesium 1.9 (1.8-2.4) mg/dL Total Bilirubin 0.5 (0.2-1.0) mg/dL AST 15 (15-37) U/L ALT 22 (12-78) U/L Alkaline Phosphatase 93 (46-116) IU/L Total Protein 7.1 (6.4-8.2) g/dL Albumin 3.8 (3.4-5.0) g/dL - Radiology Interpretation Free Text/Narrative:: CT of head/neck requested given mechanism of injury - Re-Assessments/Exams Free Text/Narrative Re-Assessment/Exam: 02/23/19 22:49 Patient continues to say he feels fine and has no complaints. CBC/Chem/Mg unremarkable. No focal acute injuries noted on exam. Pending CT results. Plan at this time is to discharge patient home if scans are negative for acute intracranial injury/fracture. Family would like patient to be able to return home vs staying on observation overnight. They will return for recheck if problems are noted/symptoms worsen Free Text/Narrative Re-Assessment/Exam: 02/23/19 22:58 CT reports of head and neck scan show no signs of acute injury. Departure - Departure Time of Disposition: 22:58 Disposition: Home, Self-Care 01 Condition: Good Clinical Impression: Concussion Qualifiers: Encounter type: initial encounter Loss of consciousness presence/duration: without LOC Qualified Code(s): S06.0X0A - Concussion without loss of consciousness, initial encounter Fall Qualifiers: Encounter type: initial encounter Qualified Code(s): W19.XXXA - Unspecified fall, initial encounter - Discharge Information *PRESCRIPTION DRUG MONITORING PROGRAM REVIEWED*: Not Applicable *COPY OF PRESCRIPTION DRUG MONITORING REPORT IN PATIENT FRANCIS: Not Applicable Instructions: Concussion, Adult Referrals: PCP,None [Primary Care Provider] - Forms: ED Department Discharge Additional Instructions: Observe for any changes. Follow up as needed if there are an concerns/worsening symptoms. - My Orders Last 24 Hours: My Active Orders 02/23/19 21:54 Cervical Spine wo Cont [CT] Routine 02/23/19 21:55 Head wo Cont [CT] Routine 02/23/19 21:56 UA W/MICROSCOPIC [URIN] Stat - Assessment/Plan Last 24 Hours: My Active Orders 02/23/19 21:54 Cervical Spine wo Cont [CT] Routine 02/23/19 21:55 Head wo Cont [CT] Routine 02/23/19 21:56 UA W/MICROSCOPIC [URIN] Stat
== END 2019-02-23 23:10 | disposition home or self-care (01) ==
LOC: LL.ED 21:38
DX: S06.0X0A Concussion without loss of consciousness, initial encounter (principal); S00.03XA Contusion of scalp, initial encounter; I10 Essential (primary) hypertension; E78.00 Pure hypercholesterolemia, unspecified; Z79.82 Long term (current) use of aspirin; Z79.899 Other long term (current) drug therapy; W07.XXXA Fall from chair, initial encounter; Y92.009 Unspecified place in unspecified non-institutional (private) residence as the place of occurrence of the external cause
CPT/HCPCS: 36415; 70450; 72125; 80053; 83735; 85025; 99283; 99283-25

== ENCOUNTER 2020-03-11 09:20 | Emergency (ER) | payer MEDICARE, BC ==
[2020-03-11] MEDS ORDERED: Sodium Chloride 0.9% 10 ML Syringe FLUSH PRN (09:44)
--- NOTE | 2020-03-11 09:52 | EDM.PDOC ---
ED HPI GENERAL MEDICAL PROBLEM - General Chief Complaint: Neurological Problem Stated Complaint: stroke Time Seen by Provider: 03/11/20 09:27 Source of Information: Reports: Family History Limitations: Reports: Other (Patient unable to talk for a year due to progressive chronic ataxia diagnosis. ) - History of Present Illness INITIAL COMMENTS - FREE TEXT/NARRATIVE: Patient brought in to ER by family due to sudden observed change in behavior this morning when his went in to get him up for the day. Noted to not be making eye contact/staring straight to ceiling and holding body stiffly/straight. Also incontinent which is unusual for him. Hx of chronic progressive ataxia diagnosis. Nonverbal for past year. Needs assist with transfer. Frequent falls per . still able to care for patient at home. Has assistance from neighbors and other family members and feels that so far she can keep doing it. Fell twice yesterday but no obvious injuries per . Only thing she noticed was that he was clearing throat more frequently than usual yesterday evening/part of the night. This resolved by 4am. Family able to get patient into the car for ride to ER. Similar symptoms not noted in past. - Related Data Allergies Allergy/AdvReac Type Severity Reaction Status Date / Time No Known Allergies Allergy Verified 09/23/17 18:54 Home Meds: Home Meds Aspirin 2 tab PO BEDTIME 08/29/13 [History] Cyanocobalamin (Vitamin B12) [Vitamin B12] 2,500 mcg SL DAILY 08/29/13 [History] Tetrahydrozoline [Visine] 2 drop OP TID PRN 08/29/13 [History] lisinopriL [Prinivil] 20 mg PO DAILY 08/29/13 [History] Cholecalciferol (Vitamin D3) [D-2000] 2,000 unit PO DAILY 08/16/15 [History] amLODIPine [Norvasc] 2.5 mg PO DAILY 08/16/15 [History] Ascorbic Acid [Vitamin C] 1,000 mg PO DAILY 05/29/17 [History] Fish Oil/[place]-3 Fatty Acids [Fish Oil 1,000 MG] 1 gram PO DAILY 03/11/20 [History] Past Medical History HEENT History: Reports: Cataract Cardiovascular History: Reports: High Cholesterol, Hypertension Musculoskeletal History: Reports: Other (See Below) Other Musculoskeletal History: hx, broken colar bone, left leg pt not sure which one. Spinal burst fracture Neurological History: Reports: Concussion, Other (See Below) Other Neuro History: deteriorating cerebelum, chronically slurred speech since dizziness started several years ago. Chronic right sided weakness. Questionable degree of cognitive decline recently. Oncologic (Cancer) History: Reports: Prostate - Past Surgical History Male Surgical History: Reports: Prostatectomy Musculoskeletal Surgical History: Reports: ORIF - History Comment History Comment: Extensive workup and imaging to look for causes of chronic dizziness/slurred speech. No focal CVA/ischemic disease identified per patient/ Social & Family History - Family History Family Medical History: No Pertinent Family History - Caffeine Use Caffeine Use: Reports: Coffee - Living Situation & Occupation Living situation: Reports: Occupation: Employed ED ROS GENERAL - Review of Systems Review Of Systems: Comprehensive ROS is negative, except as noted in HPI. ED EXAM, GENERAL - Physical Exam Exam: See Below Exam Limited By: No Limitations General Appearance: Alert, No Apparent Distress, Thin, Other (able to track staff with his eyes) Eye Exam: Bilateral Eye: EOMI, PERRL Ears: Normal External Exam, Hearing Grossly Normal Nose: No: Nasal Deformity, Nasal Swelling, Nasal Drainage Throat/Mouth: Normal Lips, Normal Voice, No Airway Compromise Head: Atraumatic, Normocephalic Neck: Supple, Non-Tender, Full Range of Motion Respiratory/Chest: No Respiratory Distress, Lungs Clear, Normal Breath Sounds, No Accessory Muscle Use, Chest Non-Tender Cardiovascular: Regular Rate, Rhythm, No Edema, No Murmur GI/Abdominal: Normal Bowel Sounds, Soft, Non-Tender, No Distention (Male) Exam: Other (grossly normal appearance) Rectal (Males) Exam: Deferred Back Exam: No: CVA Tenderness (L), CVA Tenderness (R), Muscle Spasm Extremities: Normal Inspection, Normal Range of Motion, Non-Tender, No Pedal Edema, Normal Capillary Refill Neurological: Other (awake/follows commands) Psychiatric: Normal Affect, Normal Mood Skin Exam: Warm, Dry, Intact, Other (older bruise noted left forehead) #1 Interpretation EKG Date: 03/11/20 Time: 09:44 Rhythm: Other (Sinus) Rate (Beats/Min): 89 Brooks: Normal P-Wave: Present QRS: Normal ST-T: Other (no obvious acute depression/elevation suggestive of acute NV) QT: Prolonged Comparison: Other: (prolonged QT noted today, one premature supraventricular beat) Course - Orders/Labs/Meds Orders: Active Orders 24 hr Category Date Time Status EKG Documentation Completion [RC] ASDIRECTED Care 03/11/20 09:45 Active Chest 1V Frontal [CR] Stat Exams 03/11/20 09:45 Taken Head wo Cont [CT] Stat Exams 03/11/20 09:20 Taken Sodium Chloride 0.9% [Normal Saline] 500 ml Med 03/11/20 10:00 Active IV .BOLUS Sodium Chloride 0.9% [Saline Flush] Med 03/11/20 09:44 Active 10 ml FLUSH ASDIRECTED PRN Saline Lock Insert [OM.PC] Stat Oth 03/11/20 09:44 Ordered Medication Orders Sodium Chloride (Normal Saline) 500 mls @ 250 mls/hr IV .BOLUS JOSH Sodium Chloride (Saline Flush) 10 ml FLUSH ASDIRECTED PRN PRN Reason: Keep Vein Open Labs: Laboratory Tests 03/11/20 03/11/20 03/11/20 Range/Units 09:35 09:35 09:35 WBC 9.7 (4.0-10.2) K/uL RBC 4.26 L (4.33-5.41) M/uL Hgb 13.9 (13.1-16.8) g/dL Hct 40.9 (39.0-49.0) % MCV 96.0 (84.0-98.0) fL MCH 32.6 (28.2-33.3) pg MCHC 34.0 (31.7-36.0) g/dL RDW 12.6 (11.2-14.1) % Plt Count 218 (150-350) K/uL Neut % (Auto) 86.9 H (45.0-80.0) % Lymph % (Auto) 5.7 L (10.0-50.0) % Sac % (Auto) 7.3 (2.0-14.0) % Eos % (Auto) 0.0 (0.0-5.0) % Baso % (Auto) 0.1 (0.0-2.0) % Neut # (Auto) 8.42 H (1.40-7.00) K/uL Lymph # (Auto) 0.55 (0.50-3.50) K/uL Sac # (Auto) 0.71 (0.00-1.00) K/uL Eos # (Auto) 0.00 (0.00-0.50) K/uL Baso # (Auto) 0.01 (0.00-0.20) K/uL PT (9.5-12.0) SEC INR D-Dimer, Quantitative 1220 H (0-400) ng/mL Sodium 139 (136-145) mmol/L Potassium 3.7 (3.5-5.1) mmol/L Chloride 102 (98-107) mmol/L Carbon Dioxide 25.4 (21.0-32.0) mmol/L BUN 24 H (7-18) mg/dL Creatinine 0.73 (0.51-1.17) mg/dL Est Cr Clr Drug Dosing TNP Estimated GFR (MDRD) > 60 mL/min Glucose 120 H (74-106) mg/dL Lactic Acid (0.4-2.0) mmol/L Calcium 8.9 (8.5-10.1) mg/dL Magnesium 1.7 L (1.8-2.4) mg/dL Total Bilirubin 0.4 (0.2-1.0) mg/dL AST 38 H (15-37) U/L ALT 40 (12-78) U/L Alkaline Phosphatase 94 (46-116) IU/L Troponin I 0.067 H* (0.000-0.056) ng/mL NT-Pro-B Natriuret Pep 864 H (0-125) pg/mL Total Protein 7.4 (6.4-8.2) g/dL Albumin 3.7 (3.4-5.0) g/dL Specimen Type Urine Color Urine Appearance Urine pH (5.0-9.0) Ur Specific Docena (1.005-1.030) Urine Protein (NEGATIVE) mg/dL Urine Glucose (UA) (NEGATIVE) mg/dL Urine Ketones (NEGATIVE) mg/dL Urine Occult Blood (NEGATIVE) Urine Nitrite (NEGATIVE) Urine Bilirubin (NEGATIVE) Urine Urobilinogen (0.2-1.0) E.U./dL Ur Leukocyte Esterase (NEGATIVE) Urine RBC /HPF Urine WBC /HPF Ur Epithelial Cells /LPF Urine Bacteria (NONE TO FEW) /HPF 03/11/20 03/11/20 03/11/20 Range/Units 09:35 09:35 10:36 WBC (4.0-10.2) K/uL RBC (4.33-5.41) M/uL Hgb (13.1-16.8) g/dL Hct (39.0-49.0) % MCV (84.0-98.0) fL MCH (28.2-33.3) pg MCHC (31.7-36.0) g/dL RDW (11.2-14.1) % Plt Count (150-350) K/uL Neut % (Auto) (45.0-80.0) % Lymph % (Auto) (10.0-50.0) % Sac % (Auto) (2.0-14.0) % Eos % (Auto) (0.0-5.0) % Baso % (Auto) (0.0-2.0) % Neut # (Auto) (1.40-7.00) K/uL Lymph # (Auto) (0.50-3.50) K/uL Sac # (Auto) (0.00-1.00) K/uL Eos # (Auto) (0.00-0.50) K/uL Baso # (Auto) (0.00-0.20) K/uL PT 11.2 (9.5-12.0) SEC INR 1.1 D-Dimer, Quantitative (0-400) ng/mL Sodium (136-145) mmol/L Potassium (3.5-5.1) mmol/L Chloride (98-107) mmol/L Carbon Dioxide (21.0-32.0) mmol/L BUN (7-18) mg/dL Creatinine (0.51-1.17) mg/dL Est Cr Clr Drug Dosing Estimated GFR (MDRD) mL/min Glucose (74-106) mg/dL Lactic Acid 1.2 (0.4-2.0) mmol/L Calcium (8.5-10.1) mg/dL Magnesium (1.8-2.4) mg/dL Total Bilirubin (0.2-1.0) mg/dL AST (15-37) U/L ALT (12-78) U/L Alkaline Phosphatase (46-116) IU/L Troponin I (0.000-0.056) ng/mL NT-Pro-B Natriuret Pep (0-125) pg/mL Total Protein (6.4-8.2) g/dL Albumin (3.4-5.0) g/dL Specimen Type Urinfol Urine Color Brown Urine Appearance Cloudy Urine pH 6.0 (5.0-9.0) Ur Specific Docena 1.025 (1.005-1.030) Urine Protein 30 H (NEGATIVE) mg/dL Urine Glucose (UA) Negative (NEGATIVE) mg/dL Urine Ketones 40 H (NEGATIVE) mg/dL Urine Occult Blood Large H (NEGATIVE) Urine Nitrite Negative (NEGATIVE) Urine Bilirubin Negative (NEGATIVE) Urine Urobilinogen 0.2 (0.2-1.0) E.U./dL Ur Leukocyte Esterase Negative (NEGATIVE) Urine RBC >100 H /HPF Urine WBC 0-5 /HPF Ur Epithelial Cells Few /LPF Urine Bacteria Few (NONE TO FEW) /HPF Meds: Medications Generic Name Dose Route Start Last Admin Trade Name Freq PRN Reason Stop Dose Admin Sodium Chloride 500 mls @ 250 mls/hr 03/11/20 10:00 Normal Saline IV .BOLUS JOSH Sodium Chloride 10 ml 03/11/20 09:44 Saline Flush FLUSH ASDIRECTED PRN Keep Vein Open - Radiology Interpretation Free Text/Narrative:: Chest xray shows linear lucency left lower lung but no obvious pneumothorax noted. Pending RAdiology review. CT Results Date: 03/11/20 CT Results Time: 09:45 (No acute interval change) - Re-Assessments/Exams Free Text/Narrative Re-Assessment/Exam: 03/11/20 11:43 Stroke code called after patient's arrival. CT performed and unremarkable for acute change. Initial nursing assessment noted right lower leg weakness, however this was resolved when rechecked by advertising copywriter within the following 10- 15min. No focal weakness identified. Patient able to follow directions. Labs/xray ordered. Normal WBC. DDimer elevated to 1220, Trop 0.067 (no chest pain complaint/new pain complaint), and proBNP mildly elevated at 864. UA showed blood from traumatic catheterization in addition to some ketones (patient has not eaten since last night) but no evidence of UTI. EKG did not show evidence of acute ischemia. Labs findings discussed with patient/patient's . She made it clear that patient "doesn't want anything done" for most issues given his current problems with progressive Ataxia and diminishing quality of life. Because if this, no additional evaluation of the elevated DDimer/proBNP and Troponin was performed. Given the rapid improvement of patient after arrival to ER, his wished for him to be discharged home. He was not quite back to baseline/leaned a bit to the side when up, but was able to transfer with assistance. Does have history of chronic right sided weakness. Patient also gave the sign for "OK" and wished to be discharged home. Episode of stiffness may be related to his ataxia. Cannot rule out other cause such as TIA. Cannot rule out cardiac contribution given the elevated Troponin/proBPN. DDimer also elevated, but no observed respiratory distress or other symptoms noted at this time. Precautions reviewed. To be discharged home with additional follow up as needed. Departure - Departure Time of Disposition: 11:06 Disposition: Home, Self-Care 01 Condition: Good Clinical Impression: Cerebellar disease, Elevated troponin, Hyporesponsive episode - Discharge Information *PRESCRIPTION DRUG MONITORING PROGRAM REVIEWED*: Not Applicable *COPY OF PRESCRIPTION DRUG MONITORING REPORT IN PATIENT FRANCIS: Not Applicable Forms: ED Department Discharge Additional Instructions: Observe for further changes and follow up as needed. - My Orders Last 24 Hours: My Active Orders 03/11/20 09:20 Head wo Cont [CT] Stat 03/11/20 09:44 Sodium Chloride 0.9% [Saline Flush] 10 ml FLUSH ASDIRECTED PRN Saline Lock Insert [OM.PC] Stat 03/11/20 09:45 EKG Documentation Completion [RC] ASDIRECTED Chest 1V Frontal [CR] Stat 03/11/20 10:00 Sodium Chloride 0.9% [Normal Saline] 500 ml IV .BOLUS - Assessment/Plan Last 24 Hours: My Active Orders 03/11/20 09:20 Head wo Cont [CT] Stat 03/11/20 09:44 Sodium Chloride 0.9% [Saline Flush] 10 ml FLUSH ASDIRECTED PRN Saline Lock Insert [OM.PC] Stat 03/11/20 09:45 EKG Documentation Completion [RC] ASDIRECTED Chest 1V Frontal [CR] Stat 03/11/20 10:00 Sodium Chloride 0.9% [Normal Saline] 500 ml IV .BOLUS
[2020-03-11] MEDS ORDERED: Sodium Chloride 0.9% 500 ML IV SCH (10:00)
[2020-03-11 10:07] LABS: CHLORIDE,CL 102 mmol/L (98-107); SODIUM,NA 139 mmol/L (136-145)
== END 2020-03-11 11:35 | disposition home or self-care (01) ==
LOC: LL.ED 09:20
DX: G93.9 Disorder of brain, unspecified (principal); R79.89 Other specified abnormal findings of blood chemistry; R40.1 Stupor; I10 Essential (primary) hypertension; Z79.82 Long term (current) use of aspirin; Z79.899 Other long term (current) drug therapy
CPT/HCPCS: 36415; 70450; 71045; 80053; 81001; 83605; 83735; 83880; 84484; 85025; 85379; 85610; 93005; 99285-25